=== PATIENT | female | born 1955 | race Caucasian/White ===

== ENCOUNTER → 2017-09-29 | Outpatient (CLI) | payer OTHER ==
[~2017-09-29] MED LIST: HYDROCHLOROTHIA25 M2 PO; MOBIC7.5 MG PO
--- NOTE | 2017-10-11 23:24 | ONC ---
[place] [address] RADIATION ONCOLOGY NOTE Name: LILI CHAPPELL Room: [facility]#: [id number] Admission: 09/29/17 Attend Phys: José Ramon MD Discharge: Date of : 57 Report #: [id number] THIS REPORT FOR: //name// CC: José Tavarez MD DATE OF SERVICE: 09/29/2017 RADIATION ONCOLOGY FOLLOWUP NOTE REFERRING PHYSICIANS: Dl Garner MD and Deepti Tavarez MD [facility] phone is [phone]. 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 The patient completed radiation treatments on 12/16/2012. INTERVAL NOTE: The patient denied having any nipple discharge from the left breast. She denied having any nipple discharge from the right breast. She denied having any palpable masses involving the left breast. She denied having any palpable masses involving the right breast. MEDICATIONS: Meloxicam, vitamin D, multivitamin and Benicar. SOCIAL HISTORY: The patient does not smoke cigarettes. She is . She has 2 sons. REVIEW OF SYSTEMS: RESPIRATORY: She was not short of breath during her followup appointments. MUSCULOSKELETAL: She has good range of motion of her upper extremities. PHYSICAL EXAMINATION: With my nurse, Lili Croft, present: VITAL SIGNS: The patient was 217.8 pounds on 09/29/2017 and 220.8 pounds on 09/28/2016. On 09/29/2017, blood pressure was 146/85, pulse 107. I retook that once more and her pulse was 84 a few minutes later. Respirations was 20. LYMPH NODES: She had no palpable cervical, supraclavicular or axillary lymphadenopathy. HEART: Had a regular rate and rhythm without murmur. LUNGS: were clear to auscultation. BREASTS: Left breast had no suspicious palpable masses. Right breast had no suspicious palpable masses. ABDOMEN: Soft, not tender. Spleen was not palpable. Liver was at the costal margin. EXTREMITIES: Had no clubbing, cyanosis or edema. RADIOLOGIC DATA: From 09/27/2017, the patient had a routine mammogram, [place] [address] RADIATION ONCOLOGY NOTE Name: LILI CHAPPELL Room: [facility]#: [id number] Admission: 09/29/17 Attend Phys: José Ramon MD Discharge: Date of : 57 Report #: [id number] had no mammographic evidence of malignancy. ASSESSMENT AND PLAN: 1. History of ductal carcinoma in situ of the left breast- There is no evidence of breast cancer. A requisition was written for bilateral mammogram in September 2018. The patient was asked to schedule a followup appointment to see me afterwards. The patient continues to follow up with her medical oncologist, Dr. Tavarez and she is scheduled to see her on 12/07/2017. 2. Hypertension- The patient is taking Benicar and that is managed by her referring physicians. 3. Arthritis- The patient takes Meloxicam for arthritis and that is managed by her referring physicians. Thank you for allowing me to participate in the care of this patient. <ELECTRONICALLY SIGNED> By: José Ramon MD 10/11/17 [id number] Ramon MD /nt
== END ==
LOC: M.RTH 01:27
DX: Z08 Encounter for follow-up examination after completed treatment for malignant neoplasm (principal); I10 Essential (primary) hypertension; M19.90 Unspecified osteoarthritis, unspecified site; Z85.3 Personal history of malignant neoplasm of breast

== ENCOUNTER → 2019-06-28 | Outpatient (CLI) | payer OTHER | LOC: M.CT 12:06 | DX: R91.8 Other nonspecific abnormal finding of lung field (principal); Z85.3 Personal history of malignant neoplasm of breast; I25.10 Atherosclerotic heart disease of native coronary artery without angina pectoris ==

== ENCOUNTER → 2020-07-24 | Outpatient (CLI) | payer OTHER | LOC: M.CT 12:46 | PROVIDERS: ATTEND Family Medicine | DX: R91.1 Solitary pulmonary nodule (principal); R91.8 Other nonspecific abnormal finding of lung field; R07.9 Chest pain, unspecified ==